=== PATIENT | male | born 1990 | race Caucasian/White ===

== ENCOUNTER 2023-05-26 06:55 | Day surgery (SDC) | payer OTHER ==
[~2023-05-26 06:55] MED LIST: PROPOFOL 500 MG/50 ML 500 MG/50 ML VIAL ONE
[2023-05-26] MEDS ORDERED: ceFAZolin 2 GM VIAL ONE (07:13)
[2023-05-26] MEDS ORDERED: LACTATED RINGERS 1,000 ML IV ONE (07:15)
--- NOTE | 2023-05-26 07:52 | ANESTHESIA ---
Pre-Anesthesia VS, & Labs - Diagnosis R inguinal hernia - Procedure R inguinal hernia repair w/mesh Vital Signs: Temp Pulse Resp BP Pulse Ox O2 Flow Rate 36.4 C L 72 16 121/72 99 99 05/26/23 07:16 05/26/23 07:16 05/26/23 07:16 05/26/23 07:16 05/26/23 07:16 05/26/23 07:16 Height: 5 ft 8 in Weight (kg): 75.2 kg Body Mass Index: 25.2 BMI Classification: Overweight - NPO >8 hours - Lab Results Lab results reviewed: Yes Home Medications and Allergies Allergies/Adverse Reactions: Allergies Allergy/AdvReac Type Severity Reaction Status Date / Time No Known Drug Allergies Allergy Verified 11/25/21 20:01 Anes History & Medical History - Anesthetic History Anesthesia Complications: reports: No previous complications Family history of Anesthesia Complications: Denies Family history of Malignant Hyperthermia: Denies - Medical History Cardiovascular: reports: None Pulmonary: reports: None Gastrointestinal: reports: None Urinary: reports: None Neuro: reports: None Musculoskeletal: reports: None Endocrine/Autoimmune: reports: None Blood Disorders: reports: None Skin: reports: None Smoking Status: Light tobacco smoker (vapes occasionally) - Surgical History General: reports: Appendectomy Exam General: Alert, Oriented x3, Cooperative Dental: WNL Mouth Openin Fingerbreadth Neck Mobility: Normal Mallampati classification: II Thyromental Distance: 4-6 cm Respiratory: Lungs clear, Normal breath sounds, No respiratory distress Cardiovascular: Regular rate Neurological: Normal speech Mental/Cognitive Status: Alert/Oriented X3, Normal for patient Cognitive Status: Within normal limits Plan Anesthesia Type: General Consent for Procedure(s) Verified and Reviewed: Yes Code Status: Attempt Resuscitation ASA classification: 1-Healthy patient Is this case an emergency?: No
[2023-05-26] MEDS ORDERED: fentaNYL 100 MCG/2 ML VIAL IVP PRN (07:59)
[2023-05-26] MEDS ORDERED: METOCLOPRAMIDE 10 MG/2 ML VIAL IVP PRN (07:59)
[2023-05-26] MEDS ORDERED: ONDANSETRON 4 MG/2 ML VIAL IVP PRN (07:59)
[2023-05-26] MEDS ORDERED: NALOXONE 0.4 MG/ML VIAL IVP PRN (07:59)
[2023-05-26] MEDS ORDERED: HYDROmorphone 0.5 MG/0.5 ML SYRINGE IVP PRN (07:59)
[2023-05-26] MEDS ORDERED: ATROPINE ABBOJECT 1 MG/10 ML SYRINGE IVP PRN (07:59)
[2023-05-26] MEDS ORDERED: ePHEDrine 50 MG/ML VIAL IVP PRN (07:59)
[2023-05-26] MEDS ORDERED: MORPHINE 2 MG/ML CARPUJECT IVP PRN (07:59)
[2023-05-26] MEDS ORDERED: LACTATED RINGERS 1,000 ML IV SCH (08:00)
[2023-05-26] MEDS ORDERED: LIDOCAINE 1%-EPI 1:100000 20 ML MDV ONE (08:05)
[2023-05-26] MEDS ORDERED: BUPIVACAINE 0.25% PF 30 ML VIAL ONE (08:05)
[2023-05-26] MEDS ORDERED: fentaNYL 100 MCG/2 ML VIAL ONE (08:19)
[2023-05-26] MEDS ORDERED: DEXAMETHASONE 4 MG/ML VIAL ONE (08:40)
[2023-05-26] MEDS ORDERED: ONDANSETRON 4 MG/2 ML VIAL ONE (08:40)
[2023-05-26] MEDS ORDERED: BUPIVACAINE 0.25% PF 30 ML VIAL SUBQ ONE (08:45)
[2023-05-26] MEDS ORDERED: LIDOCAINE-MPF 1% 30 ML VIAL SUBQ ONE (08:45)
[2023-05-26] MEDS ORDERED: LACTATED RINGERS 150 ML IV ONE (09:37)
[2023-05-26] MEDS ORDERED: HYDROcod/ACETAM 5/325 MG TABLET PO PRN (09:40)
--- NOTE | 2023-05-26 09:52 | OPERATIVE REPORT ---
Operative Report - General Procedure Date: 05/26/23 Planned Procedure: open right inguinal hernia repair with mesh Pre-Op Diagnosis: indirect right inguinal hernia Procedure Performed: open right inguinal hernia repair with mesh Post Op Diagnosis: same - Procedure Note Primary Surgeon: mila parrish Anesthesia Technique: General LMA, Local Pathology: sac not sent Estimated Blood Loss (mL): 2 Drain/Tube Type: Other (none) Indications: painful hernia bulge Findings: as above Complications: none - Other Other Information/Narrative: Patient was properly identified brought to the operating room and placed in supine position. Sequential compression devices were placed. Laryngeal mask anesthesia was induced. He was prepped and draped in a sterile fashion and given preoperative antibiotics. Local anesthetic was given throughout the procedure. A 5 cm incision was made in the direction of Guillermina's lines just cephalad of the pubic tubercle. Dissection proceeded with cutting current cautery. The superficial epigastric vein was identified clamped divided and tied with 3-0 Vicryl. Dissection proceeded down to the aponeurosis. The aponeurosis was opened in the direction of its fibers and extended to the external ring. Cord structures were mobilized and brought up. The nerves were carefully protected and preserved. Cord structures were mobilized and brought up. An indirect inguinal hernia was present. The hernia sac was mobilized off the cord structures and suture ligated with 2 O silk and further reduced. Polypropylene mesh was cut to size and with tails. The mesh was secured with multiple interrupted 0 Ethibond sutures. She was placed along the pubic tubercle, Suhail's ligament area and along the shelving border of Poupart's ligament. Sutures were placed medially along the abdominal wall musculature and internal oblique. The medial tail of the mesh was secured to the shelving border of Poupart's ligament with 3 interrupted 0 ethibond sutures recreating the internal ring of appropriate size. Aponeurosis was closed with a running 2-0 Vicryl suture. Scarpas fascia was closed with interrupted 3-0 Vicryl suture. Buried interrupted subdermal 3-0 Vicryl sutures were then placed. Skin was closed with a running 4-0 Monocryl subcuticular suture. Dressing was applied. Patient was awakened and brought to recovery in good condition.
[2023-05-26 10:01] VITALS: O2SAT 100
--- NOTE | 2023-05-26 10:16 | ANESTHESIA POST OP EVALUATION ---
Anesthesia Post Eval - Post Anesthesia Eval Vitals: Last Vital Signs Temp 36.0 C L 05/26/23 10:04 Pulse 71 05/26/23 10:04 Resp 14 05/26/23 10:04 BP 117/69 05/26/23 10:04 Pulse Ox 100 05/26/23 10:04 O2 Flow Rate 99 05/26/23 07:16 CV Function Including HR & BP: Stable Pain Control: Satisfactory Nausea & Vomiting: Negative Mental Status: Baseline Respiratory Status: Airway Patent Hydration Status: Satisfactory Anesthesia Complications: None
[2023-05-26] MEDS ORDERED: HYDROcod/ACETAM 5/325 MG TABLET ONE (10:38)
[2023-05-26 10:39] VITALS: BP 125/72
== END 2023-05-26 06:56 | disposition home or self-care (01) ==
LOC: SDS 06:55
PROVIDERS: ATTEND Surgery
DX: K40.90 Unilateral inguinal hernia, without obstruction or gangrene, not specified as recurrent (principal); F17.290 Nicotine dependence, other tobacco product, uncomplicated
CPT/HCPCS: 49505; A9270; C1781; J7120

== ENCOUNTER 2024-02-23 23:19 | Emergency (ER) | payer OTHER ==
[2024-02-23 23:36] VITALS: BP 120/68; O2SAT 100
--- NOTE | 2024-02-24 00:04 | ED Physician Documentation ---
PD HPI OPHTHO - Stated complaint Stated Complaint: R EYE PX - Chief complaint Chief Complaint: Heent - History obtained from History obtained from: Patient - Additional information Additional information: 33-year-old male, previously healthy without corrective lenses presents with right eye pain starting 2 hours prior to arrival after going on a trip and starting to drive home and realizing he had photophobia. He does not recall any injury to the eye and has no eye discharge but it is slightly red. PD PAST MEDICAL HISTORY - Past Medical History Past Medical History: No Cardiovascular: None Respiratory: None Neuro: None Endocrine/Autoimmune: None GI: None : None HEENT: None Psych: None Musculoskeletal: None Derm: None - Past Surgical History Past Surgical History: Yes General: Appendectomy - Present Medications Home Medications: Ambulatory Orders Medication Instructions Recorded Confirmed Mineral Oil/Petrolatum,White 3.5 gm OP QPM #3.5 gm 02/24/24 [Lubricant Pm Eye Ointment] Ofloxacin 0.3% Ophth Drops 2 drops OPTH BID 10 Days #5 ml 02/24/24 [Ocuflox 0.3% Ophth Drops] - Allergies Allergies/Adverse Reactions: Allergies Allergy/AdvReac Type Severity Reaction Status Date / Time No Known Drug Allergies Allergy Verified 02/23/24 23:27 - Social History Does the pt smoke?: No Smoking Status: Never smoker Does the pt drink ETOH?: Yes Does the pt have substance abuse?: No - Immunizations Immunizations are current?: Yes - POLST Patient has POLST: No PD ED PE NORMAL - Vitals Vital signs reviewed: Yes - General General: Alert and oriented X 3, No acute distress, Well developed/nourished - HEENT HEENT: Atraumatic, PERRL, EOMI, Other (Thomson lamp exam with no visible foreign material. Fluorescein exam shows corneal abrasion to the right eye.) Results - Vitals Vitals: Vital Signs - 24 hr 02/23/24 23:27 Temperature 36.8 C Heart Rate 71 Respiratory 16 Rate Blood Pressure 120/68 O2 Saturation 100 Oxygen O2 Source Room air PD Medical Decision Making - ED course ED course: 33-year-old male presents with right eye corneal abrasion. Antibiotics drops sent to pharmacy. Return precautions given. Plan to follow-up outpatient with primary care routinely. Departure - Departure Disposition: 01 Home, Self Care Clinical Impression: Corneal abrasion Condition: Stable Instructions: ED Eye Injury Corneal Abrasion Prescriptions: Mineral Oil/Petrolatum,White [Lubricant Pm Eye Ointment] 3.5 gm OP QPM #3.5 gm Ofloxacin 0.3% Ophth Drops [Ocuflox 0.3% Ophth Drops] 2 drops OPTH BID 10 Days #5 ml Comments: You were seen in the emergency department for eye pain and found to have a scratch on your cornea. Eye drops sent to [facility]. Please follow-up with your primary care provider and return to the emergency department if you have any new or worsening symptoms or other concerns. Forms: PCP List Discharge Date/Time: 02/24/24 00:13
== END 2024-02-24 00:13 | disposition home or self-care (01) ==
LOC: ED 23:19
DX: S05.01XA Injury of conjunctiva and corneal abrasion without foreign body, right eye, initial encounter (principal); X58.XXXA Exposure to other specified factors, initial encounter
CPT/HCPCS: 99282; 99283